=== PATIENT | male | born 1980 | race Caucasian/White ===

== ENCOUNTER 2018-06-09 12:29 | Emergency (ER) | payer OTHER ==
[2018-06-09 12:35] VITALS: BP 134/71; PULSE 59; TEMP 98; BMI 27.6
--- NOTE | 2018-06-09 13:10 | PDOC ---
History of Present Illness - General Chief Complaint: Shoulder Dislocation Stated Complaint: ARM INJURY Time Seen by Provider: 06/09/18 13:06 History Source: Patient - History of Present Illness Occurred: reports: just prior to arrival Upper Extremity Pain Location: right: shoulder Method of Injury: reports: other Past History - Past Medical History Allergies/Adverse Reactions: Allergies Allergy/AdvReac Type Severity Reaction Status Date / Time No Known Allergies Allergy Verified 06/09/18 12:34 Home Medications: Ambulatory Orders No Home Medications 0 dose .ROUTE UTDICT 06/04/14 COPD: No - Suicide/Smoking/Psychosocial Hx Smoking History: Never smoked Have you smoked in the past 12 months: No Information on smoking cessation initiated: No Hx Alcohol Use: No Drug/Substance Use Hx: No Substance Use Type: None Review of Systems - Review of Systems Musculoskeletal: Yes: Joint Pain, Joint Swelling *Physical Exam - Vital Signs Last Vital Signs Temp Pulse Resp BP Pulse Ox 98.0 F 59 L 17 134/71 100 06/09/18 12:32 06/09/18 12:32 06/09/18 12:32 06/09/18 12:32 06/09/18 12:32 - Physical Exam General Appearance: Yes: Appropriately Dressed. No: Apparent Distress HEENT: positive: Normal Voice Neck: positive: Supple Respiratory/Chest: negative: Respiratory Distress Extremity: positive: Normal Inspection, Normal Range of Motion, Other (NVI). negative: Tender, Swelling Integumentary: positive: Dry, Warm Neurologic: positive: Fully Oriented, Alert, Normal Mood/Affect Medical Decision Making - Medical Decision Making 06/09/18 13:25 37-year-old male, history of recurrent right shoulder dislocation. States shoulder dislocated again this afternoon while playing baseball but has since been able to put back in place since in ED. X-ray taken and shows no abnormalities. Patient's post reduction exam unremarkable. Given sling and orthopedic follow-up *DC/Admit/Observation/Transfer Diagnosis at time of Disposition: Recurrent shoulder dislocation - Discharge Dispostion Disposition: HOME Condition at time of disposition: Good - Referrals Referrals: Michael Jacques MD [Staff Physician] - - Patient Instructions Printed Discharge Instructions: DI for Shoulder Dislocation Additional Instructions: Your xray shows that your shoulder is back in place Keep sling in place for the next 1-[address] Jacques of orthopedics for follow up in 1 week to discuss further management Print Language: ALBANIAN - Post Discharge Activity
== END 2018-06-09 13:27 | disposition home or self-care (01) ==
LOC: JERFT 12:29
DX: M24.411 Recurrent dislocation, right shoulder (principal); X50.9XXA Other and unspecified overexertion or strenuous movements or postures, initial encounter; Y93.64 Activity, baseball; Y92.320 Baseball field as the place of occurrence of the external cause; Y99.8 Other external cause status
CPT/HCPCS: 73030-TC-RT-FY; 99281-25

== ENCOUNTER 2019-09-17 10:30 | Emergency (ER) | payer OTHER ==
[2019-09-17 10:40] VITALS: BP 105/72; PULSE 73; TEMP 98; BMI 27.6
[2019-09-17 11:37] LABS: PH,URINE 6.5 (5.0-8.0); URINE APPEARANCE CLEAR; URINE BILIRUBIN NEGATIVE (NEGATIVE); URINE COLOR YELLOW; URINE GLUCOSE (UA) NEGATIVE (NEGATIVE); URINE KETONE NEGATIVE (NEGATIVE); URINE LEUK ESTERASE NEGATIVE (NEGATIVE); URINE NITRITE NEGATIVE (NEGATIVE); URINE PROTEIN NEGATIVE (NEGATIVE); URINE UROBILINOGEN 0.2 mg/dL (0.2-1.0)
[2019-09-17 11:41] LABS: BASO % 0.6 % (0-2.0); HEMATOCRIT 47.6 % (35.4-49); HEMOGLOBIN 15.7 GM/dL (11.7-16.9); MCH 29.4 pg (25.7-33.7); MCHC 33.1 g/dl (32.0-35.9); MEAN CELL VOLUME 88.9 fl (80-96); MEAN PLT VOLUME 7.5 fl (7.5-11.1); MONO % 5.1 % (3.8-10.2); NEUT % 64.3 % (42.8-82.8); PLATELET COUNT 205 K/MM3 (134-434); RBC 5.36 M/mm3 (4.00-5.60); RDW 13.3 % (11.9-15.9); WHITE BLOOD COUNT 6.3 K/mm3 (4.0-10.0)
--- NOTE | 2019-09-17 11:45 | PDOC ---
History of Present Illness - General History Source: Patient Exam Limitations: Clinical Condition - History of Present Illness Initial Comments: 09/17/19 11:40 Patient with no significant past medical history presented with complaint of left flank pain since this morning with mild nausea. Denies vomiting, fever, chills. Denies diarrhea constipation. Patient report has similar episode 3 years ago and was found to have a kidney stone. Patient reported urinary frequency but denies dysuria or burning with urination. Patient reports pain is improved now. Denies any other symptoms Is this a multiple visit Asthma Patient?: No <Akira Esparza - Last Filed: 09/17/19 14:01> <Steve Simeon - Last Filed: 09/17/19 17:47> - General Chief Complaint: Pain, Acute Stated Complaint: ABD. PAIN/ KIDNEY PAIN Time Seen by Provider: 09/17/19 11:23 Past History - Past Medical History COPD: No - Psycho Social/Smoking Cessation Hx Smoking History: Never smoked Have you smoked in the past 12 months: No Hx Alcohol Use: No Drug/Substance Use Hx: No Substance Use Type: None <Akira Esparza - Last Filed: 09/17/19 14:01> <Steve Simeon - Last Filed: 09/17/19 17:47> - Past Medical History Allergies/Adverse Reactions: Allergies Allergy/AdvReac Type Severity Reaction Status Date / Time No Known Allergies Allergy Verified 09/17/19 10:35 Home Medications: Ambulatory Orders No Home Medications 0 dose .ROUTE UTDICT 06/04/14 Ketorolac Tromethamine [Toradol] 10 mg PO Q6H PRN #28 tablet 09/17/19 Tamsulosin HCl [Flomax -] 0.4 mg PO DAILY #7 cap.er.24h 09/17/19 Review of Systems - Review of Systems Able to Perform ROS?: Yes Is the patient limited Turkish proficient: No Constitutional: No: Chills, Fever, Malaise HEENTM: No: Symptoms Reported Respiratory: No: Symptoms reported, See HPI, Cough, Orthopnea, Shortness of Breath, SOB with Exertion, SOB at Rest, Stridor, Wheezing, Productive cough, Hemoptysis, Other Cardiac (ROS): No: Symptoms Reported, See HPI, Chest Pain, Edema, Irregular Heart Rate, Lightheadedness, Palpitations, Syncope, Chest Tightness, Other ABD/GI: Yes: Nausea. No: Symptoms Reported, Abd. Pain w/ defecation, Blood Streaked Bowels, Constipated, Diarrhea, Difficulty Swallowing, Poor Fluid Intake , Rectal Bleeding, Vomiting, Abdominal cramping : Yes: See HPI, Frequency, Flank Pain (left flank). No: Burning, Dysuria, Discharge, Urgency, Testicular Mass, Testicular Swelling, Testicular Pain Musculoskeletal: No: Symptoms Reported Neurological: No: Symptoms reported, Dizziness All Other Systems: Reviewed and Negative <Akira Esparza - Last Filed: 09/17/19 14:01> *Physical Exam - Vital Signs Last Vital Signs Temp Pulse Resp BP Pulse Ox 98 F 73 18 105/72 98 09/17/19 10:35 09/17/19 10:35 09/17/19 10:35 09/17/19 10:35 09/17/19 10:35 - Physical Exam Comments: 09/17/19 11:44 GENERAL: Well developed, well nourished. Awake and alert. No acute distress. NECK: Supple. Full ROM. CARDIOVASCULAR: Regular rate and rhythm. No murmurs, rubs, or gallops. Distal pulses are 2+ and symmetric. PULMONARY: No evidence of respiratory distress. Lungs clear to auscultation bilaterally. No wheezing, rales or rhonchi. ABDOMINAL: Soft. Mild left flank tenderness. Non-distended. No rebound or guarding. No organomegaly. Normoactive bowel sounds. MUSCULOSKELETAL Normal range of motion at all joints. SKIN: Warm and dry. Normal capillary refill. NEUROLOGICAL: Alert, awake, appropriate. Gait is normal without ataxia. PSYCHIATRIC: Cooperative. Good eye contact. Appropriate mood General Appearance: Yes: Nourished, Appropriately Dressed. No: Apparent Distress <Akira Esparza - Last Filed: 09/17/19 14:01> - Vital Signs Last Vital Signs Temp Pulse Resp BP Pulse Ox 98 F 73 18 105/72 98 09/17/19 10:35 09/17/19 10:35 09/17/19 10:35 09/17/19 10:35 09/17/19 10:35 <Steve Simeon - Last Filed: 09/17/19 17:47> ED Treatment Course - LABORATORY CBC & Chemistry Diagram: 09/17/19 11:30 09/17/19 11:30 - ADDITIONAL ORDERS Additional order review: Laboratory Results 09/17/19 11:11 Urine Color Yellow Urine Appearance Clear Urine pH 6.5 Ur Specific [place] 1.020 Urine Protein Negative Urine Glucose (UA) Negative Urine Ketones Negative Urine Blood 1+ H Urine Nitrite Negative Urine Bilirubin Negative Urine Urobilinogen 0.2 Ur Leukocyte Esterase Negative - RADIOLOGY Radiology Studies Ordered: Category Date Time Status SPIRAL- RENAL-STONE CT [CT] Stat CT Scan 09/17/19 11:30 Ordered <Akira Esparza - Last Filed: 09/17/19 14:01> - LABORATORY CBC & Chemistry Diagram: 09/17/19 11:30 09/17/19 11:30 - ADDITIONAL ORDERS Additional order review: Laboratory Results 09/17/19 09/17/19 11:30 11:11 Sodium 139 Potassium 3.8 Chloride 108 H Carbon Dioxide 25 Anion Gap 7 L BUN 13.5 Creatinine 1.2 Est GFR (CKD-EPI)AfAm 89.62 Est GFR (CKD-EPI)NonAf 77.33 Random Glucose 159 H Calcium 8.7 Total Bilirubin 0.4 AST 15 ALT 28 Alkaline Phosphatase 98 Total Protein 7.1 Albumin 3.8 Urine Color Yellow Urine Appearance Clear Urine pH 6.5 Ur Specific [place] 1.020 Urine Protein Negative Urine Glucose (UA) Negative Urine Ketones Negative Urine Blood 1+ H Urine Nitrite Negative Urine Bilirubin Negative Urine Urobilinogen 0.2 Ur Leukocyte Esterase Negative Urine WBC (Auto) 0.6 Urine RBC (Auto) 4.2 Urine Casts (Auto) 2.96 U Epithel Cells (Auto) 1.8 Urine Bacteria (Auto) 2.2 09/17/19 11:30 RBC 5.36 MCV 88.9 MCHC 33.1 RDW 13.3 MPV 7.5 Neutrophils % 64.3 D Lymphocytes % 26.0 D Monocytes % 5.1 Eosinophils % 4.0 Basophils % 0.6 <Steve Simeon - Last Filed: 09/17/19 17:47> Medical Decision Making - Medical Decision Making 09/17/19 11:45 Patient with no significant past medical history presented with complaint of left flank pain since this morning with mild nausea. Denies vomiting, fever, chills. Denies diarrhea constipation. Patient report has similar episode 3 years ago and was found to have a kidney stone. Patient reported urinary frequency but denies dysuria or burning with urination. Patient reports pain is improved now. Denies any other symptoms Exam significant for mild tenderness to left flank without guarding or rebound. No CVA tenderness. Symptoms likely muscle strain versus renal colic 09/17/19 11:53 CBC, CMP lab ordered. Urine GC and chlamydia test, UA urine culture lab ordered. Spiral CT ordered to rule out kidney stone 09/17/19 13:59 CBC and chemistry lab unremarkable. UA with no acute findings. Spiral CT shows multiple nonobstructing bilateral kidney stones. Patient stable for discharge on Flomax once daily and Toradol p.o. for pain for kidney stone with urology follow-up <Akira Esparza - Last Filed: 09/17/19 14:01> - Medical Decision Making 09/17/19 17:43 I reviewed the case of the mid-level practitioner and was available for consultation while in the emergency department <Steve Simeon - Last Filed: 09/17/19 17:47> Discharge - Discharge Information Problems reviewed: Yes - Admission No <Akira Esparza - Last Filed: 09/17/19 14:01> <Steve Simeon - Last Filed: 09/17/19 17:47> - Discharge Information Clinical Impression/Diagnosis: Kidney stone, Bilateral nephrolithiasis Condition: Stable Disposition: HOME - Additional Discharge Information Prescriptions: Ketorolac Tromethamine [Toradol] 10 mg PO Q6H PRN #28 tablet PRN Reason: pain Tamsulosin HCl [Flomax -] 0.4 mg PO DAILY #7 cap.er.24h - Follow up/Referral Referrals: Bonifacio Batista MD [Staff Physician] - - Patient Discharge Instructions Patient Printed Discharge Instructions: Kidney Stones -- Adult Additional Instructions: Your CAT scan shows small kidney stones. Take prescribed medication as prescribed for kidney stone. Follow-up referred to urologist Print Language: KITTITIAN
[2019-09-17 12:08] LABS: ALBUMIN 3.8 g/dl (3.4-5.0); BILIRUBIN,TOTAL 0.4 mg/dL (0.2-1); BLOOD UREA NITROGEN 13.5 mg/dL (7-18); CALCIUM 8.7 mg/dL (8.5-10.1); CREATININE 1.2 mg/dL (0.55-1.3); POTASSIUM 3.8 mmol/L (3.5-5.1); TOT PROT 7.1 g/dl (6.4-8.2)
[2019-09-17 13:43] LABS: EPI CELLS 1.8 /HPF (0-5/HPF); HYALINE CASTS 2.96 /lpf (0-8); URINE RBC 4.2 /hpf (0-4); URINE WBC 0.6 /hpf (0-5)
[2019-09-17 13:44] LABS: URINE BACTERIA 2.2 /hpf (NEGATIVE)
== END 2019-09-17 14:40 | disposition home or self-care (01) ==
LOC: JER 10:30
DX: N20.0 Calculus of kidney (principal); Z87.442 Personal history of urinary calculi
CPT/HCPCS: 36415; 74176-TC; 80053; 81003; 85025; 87086; 87491; 87591; 99282-25

== ENCOUNTER 2020-01-23 09:42 | Day surgery (SDC) | payer OTHER ==
[2020-01-14 13:49] VITALS: BMI 27.6
--- NOTE | 2020-01-23 07:45 | OP ---
Operative Note - Note: Operative Date: 01/23/20 Pre-Operative Diagnosis: Right shoulder instability s/p shoulder dislocation Operation: Right shoulder arthroscopy with bankart repair and remplissage procedure Post-Operative Diagnosis: Same as Pre-op Surgeon: Denis Patiño Event Management Consultant: Lesvia Tomlinson Anesthesia: General Operative Report Dictated: Yes
[2020-01-23] MEDS ORDERED: MIDAZOLAM HCL 2 MG/2 ML SINGLE DOSE VIAL ONE ×3 (10:32→11:04)
[2020-01-23] MEDS ORDERED: ROPIVACAINE HCL 0.5% 30ML VIAL ONE ×2 (10:33→10:51)
[2020-01-23] MEDS ORDERED: PROPOFOL 20 ML ONE ×2 (11:34→14:17)
[2020-01-23] MEDS ORDERED: ROCURONIUM BROMIDE 50 MG/5 ML SYRINGE ONE (11:34)
[2020-01-23] MEDS ORDERED: oxyCODONE HCL 5 MG TABLET PO PRN (12:29)
[2020-01-23] MEDS ORDERED: PROMETHAZINE HCL 25 MG/1 ML VIAL IVPUSH PRN (12:29)
[2020-01-23] MEDS ORDERED: ONDANSETRON 4 MG/2 ML VIAL IVPUSH PRN (12:29)
[2020-01-23] MEDS ORDERED: LACTATED RINGERS SOLUTION 1,000 ML IV SCH (12:30)
[2020-01-23] MEDS ORDERED: DESFLURANE GAS 240 ML BOTTLE IH ONE (13:59)
[2020-01-23 15:44] VITALS: TEMP 97.7
--- NOTE | 2020-01-23 16:24 | OP ---
DATE OF OPERATION: 01/23/2020 PREOPERATIVE DIAGNOSIS: Right shoulder recurrent instability. POSTOPERATIVE DIAGNOSIS: Right shoulder recurrent instability. PROCEDURE: Right shoulder arthroscopy with capsule labral repair, remplissage procedure. IMPLANTS: [employer] Regenesorb Microraptor x3, [employer] Q-FIX x2. COMPLICATIONS: None. INDICATIONS: This is a pleasant gentleman who had suffered multiple dislocations to the shoulder. These occurred over a period of many years. We discussed the option of nonoperative care which was unlikely to provide long-term stability. We discussed the option of operative care including both soft tissue and bony procedures. Given that he had minimal bone loss on recent imaging MRI, it was determined that a soft tissue repair would be a viable option. We discussed there is a slightly high rate of re-tear with soft tissue repair, but it is a more anatomic repair and provide a much more normal-feeling shoulder along with less chance of arthritis in the shoulder in the future. We discussed the procedure in in detail. I reviewed surgical risks including bleeding, infection, neurovascular injury, need for further surgery, postoperative pain and stiffness, persistent instability, permanent loss of motion or strength. We discussed that recurrent instability occurs in approximately 10% to 15% of patients and sometimes needs to be addressed with an open procedure or a bony augmentation procedure. We reviewed medical risks such as heart attack, stroke, DVT, PE, and . I addressed the use of perioperative antibiotic and DVT prophylaxis. I addressed all the patient's questions and concerns. He voiced understanding and elected to proceed. DESCRIPTION OF PROCEDURE: Patient was brought to the operating room where general anesthetic was administered. He had previously been given a block in the preoperative holding area. Patient was placed into the lateral decubitus position, careful to pad all the bony prominences and maintain the neck in neutral positioning. An axillary roll was placed. The limb was placed in gentle traction and abduction. The patient was then prepped and draped in the usual sterile fashion. A preoperative dose of antibiotics was given, and the usual timeout procedure was performed. The patient was examined prior to placement of the traction, demonstrating anterior load and shift and no jonathon posterior instability. There was negative sulcus. At this point, the bony landmarks were marked out. The portal sites were marked out. A standard viewing portal was established using 11 blade posteriorly. The arthroscope was passed into the glenohumeral joint. Examination of the glenoid surface demonstrated only some mild articular wear. Examining the labrum demonstrated some partial-thickness tearing along the 6 o'clock position and extending up until the 5:30 position. There was full-thickness labral tearing extending from the 6:[address] up to the 1:30 position. An anterior superior and an anterior inferior portal were now established. No labrum was able to be visualized from the posterior viewing portal. The arthroscope was then passed into the anterior portal to gain better visualization. There appeared to be very little tissue remaining on the anterior aspect of the glenoid. An elevator was used to raise up the remaining tissue and form a sleeve of tissue comprising what was felt to be the remnant of the labrum. While elevating, a small bony fragment was identified and maintained within this sleeve of tissue as well. The elevator was always kept in close contact with the bone, especially getting down towards the 6 o'clock position. After obtaining adequate mobility of the tissue, a traction suture was placed in order to ensure that the repair would mobilize to the proper location. After placing the traction suture and being satisfied with the soft tissue release, attention was turned posteriorly. Here, a large Hill-Sachs deformity was encountered. Prior to repairing this, it should be noted the rotator cuff was inspected, demonstrating no tears in the subscapularis, supraspinatus, and infraspinatus. The biceps was inspected, demonstrating no significant pathology as well. Turning back to the Hill-Sachs, an accessory posterolateral portal was established under spinal needle localization. The bed of the Hill-Sachs was debrided utilizing mechanical shaver as well as a rasp. After adequately preparing the bed, 2 Q-FIX anchors were passed into the subacromial space and then through the cuff in 2 separate areas, drilling and then inserting the Q-FIX into the bone, one more superior, one more inferior and just lateral to the articular margin. A [employer] suture passer was then used to pass two of each anchor sutures through a separate hole to spread out the remplissage repair. The sutures were then clamped for later tying. Attention was turned back anterior. The traction sutures were used to place a more inferior suture through the tissue just in front of the 6 o'clock position. The sutures were loaded onto a knotless suture anchor. The anchor was then drilled onto the border of the face of the glenoid and then inserted, securing the inferior-most portion of the labrum. This process was then repeated next with the previously passed traction suture and then with 1 additional suture placed more proximally. After securing these 3 sutures, a drive-through test was performed and was no longer possible whereas it had been possible prior to the suture repair. The attention was turned now back to the Hill-Sachs defect. One pair from each anchor was tied together to create a omkar effect. The pulleys were then toggled down to secure the rotator cuff into the Hill-Sachs defect. This was visualized arthroscopically and was satisfactory. The other knots were then tied to secure down the omkar effect. At this point, the excess fluid was withdrawn from the shoulder. The portals were sutured using 3-0 nylon. Sterile dressings were placed. The patient was extubated and transferred to recovery room in stable condition. Mirna [id number]
[2020-01-23 17:45] VITALS: BP 113/72; PULSE 81
== END 2020-01-23 17:50 | disposition home or self-care (01) ==
LOC: FASU 09:42
PROVIDERS: ATTEND Orthopaedic Surgery Sports Medicine
PROC: 0RQJ4ZZ Repair Right Shoulder Joint, Percutaneous Endoscopic Approach (ICD-10-PCS; 2020-01-23)
PROC: 0RQJ4ZZ Repair Right Shoulder Joint, Percutaneous Endoscopic Approach (ICD-10-PCS; principal; 2020-01-23 12:20)
DX: M25.311 Other instability, right shoulder (principal)
CPT/HCPCS: 94760

== ENCOUNTER 2023-01-12 23:11 | Emergency (ER) | payer OTHER ==
[2023-01-12 23:18] VITALS: TEMP 98.1; BMI 25.4
[2023-01-13] MEDS ORDERED: FAMOTIDINE 20 MG/50 ML IVPB 20 MG/50 ML MG IVPB ONE ×2 (00:14→00:33)
[2023-01-13] MEDS ORDERED: ONDANSETRON 4 MG/2 ML VIAL IVPUSH ONE (00:14)
[2023-01-13] MEDS ORDERED: LACTATED RINGERS SOLUTION 1000 ML INFUS.BAG IV ONE (00:14)
[2023-01-13] MEDS ORDERED: ALBUTEROL SO4 2.5/IPRATROPIUM 0.5 INH SOL 3 ML VIAL.NEB. NEB ONE ×2 (00:14→00:36)
[2023-01-13] MEDS ORDERED: LIDOCAINE 5% TOPICAL PATCH TP ONE (00:14)
[2023-01-13] MEDS ORDERED: ACETAMINOPHEN 1000 MG/100 ML BAG IVPB ONE (00:14)
[2023-01-13] MEDS ORDERED: diphenhydrAMINE HCL 25 MG CAPSULE (FP) PO ONE (00:17)
[2023-01-13] MEDS ORDERED: ACETAMINOPHEN INJECTION 100 ML IVPB ONE (00:19)
[2023-01-13 00:25] LABS: BASO % 0.5 % (0-2.0); HEMATOCRIT 46.2 % (35.4-49); HEMOGLOBIN 15.8 GM/dL (11.7-16.9); LYMPH % 27.2 % (8-40); MCH 29.7 pg (25.7-33.7); MCHC 34.3 g/dl (32.0-35.9); MEAN CELL VOLUME 86.6 fl (80-96); MEAN PLT VOLUME 6.8 fl (7.5-11.1); MONO % 5.6 % (3.8-10.2); NEUT % 60.7 % (42.8-82.8); PLATELET COUNT 234 10^3/uL (134-434); RBC 5.33 M/mm3 (4.00-5.60); RDW 14.3 % (11.9-15.9)
[2023-01-13 00:26] LABS: URINE APPEARANCE CLEAR; URINE BILIRUBIN NEGATIVE (NEGATIVE); URINE COLOR YELLOW; URINE GLUCOSE (UA) NEGATIVE (NEGATIVE); URINE KETONE NEGATIVE (NEGATIVE); URINE LEUK ESTERASE NEGATIVE (NEGATIVE); URINE NITRITE NEGATIVE (NEGATIVE); URINE PROTEIN NEGATIVE (NEGATIVE)
[2023-01-13] MEDS ORDERED: LIDOCAINE 5% TOPICAL PATCH ONE (00:33)
[2023-01-13] MEDS ORDERED: ONDANSETRON 4 MG/2 ML VIAL ONE (00:33)
[2023-01-13] MEDS ORDERED: predniSONE 20 MG TABLET (UD) PO ONE (00:39)
[2023-01-13] MEDS ORDERED: predniSONE 20 MG TABLET (UD) ONE (00:44)
[2023-01-13 00:47] LABS: CALCIUM 8.8 mg/dL (8.5-10.1)
[2023-01-13 00:48] LABS: ALBUMIN 3.7 g/dl (3.4-5.0); BLOOD UREA NITROGEN 17.9 mg/dL (7-18)
[2023-01-13 00:50] LABS: CREATININE 1.2 mg/dL (0.55-1.3)
[2023-01-13 00:52] LABS: BILIRUBIN,TOTAL 0.4 mg/dL (0.2-1); TOT PROT 7.3 g/dl (6.4-8.2)
[2023-01-13 01:56] VITALS: BP 119/77; PULSE 89; RESP 18
[2023-01-13] MEDS ORDERED: LIDOCAINE PATCH REMOVAL MC ONE (12:00)
== END 2023-01-13 02:19 | disposition home or self-care (01) ==
LOC: JER 23:11
PROC: 3E033GC Introduction of Other Therapeutic Substance into Peripheral Vein, Percutaneous Approach (ICD-10-PCS; principal; 2023-01-12)
PROC: 3E0F7GC Introduction of Other Therapeutic Substance into Respiratory Tract, Via Natural or Artificial Opening (ICD-10-PCS; 2023-01-12)
DX: M54.50 Low back pain, unspecified (principal); T50.995A Adverse effect of other drugs, medicaments and biological substances, initial encounter
CPT/HCPCS: 36415; 80053; 81003; 83690; 85025; 99284-25

== ENCOUNTER 2023-02-11 12:31 | Emergency (ER) | payer OTHER ==
[2023-02-11 12:46] VITALS: RESP 20; TEMP 98.3; BMI 25.5
[2023-02-11] MEDS ORDERED: METOCLOPRAMIDE HCL INJECTION 10 MG/2 ML VIAL IVPUSH ONE (13:30)
[2023-02-11] MEDS ORDERED: SODIUM CHLORIDE 0.9% 500 ML INFUS.BAG IV ONE (13:30)
[2023-02-11] MEDS ORDERED: ACETAMINOPHEN 1000 MG/100 ML BAG IVPB ONE (13:32)
[2023-02-11] MEDS ORDERED: ACETAMINOPHEN INJECTION 100 ML IVPB ONE (13:41)
[2023-02-11] MEDS ORDERED: METOCLOPRAMIDE HCL INJECTION 10 MG/2 ML VIAL ONE (13:41)
[2023-02-11 14:05] LABS: BASO % 1.4 % (0-2.0); EOS % 17.2 % (0-4.5); HEMATOCRIT 46.5 % (35.4-49); HEMOGLOBIN 16.2 GM/dL (11.7-16.9); LYMPH % 39.4 % (8-40); MCH 29.8 pg (25.7-33.7); MCHC 34.9 g/dl (32.0-35.9); MEAN CELL VOLUME 85.5 fl (80-96); MEAN PLT VOLUME 7.2 fl (7.5-11.1); MONO % 5.7 % (3.8-10.2); NEUT % 36.3 % (42.8-82.8); PLATELET COUNT 237 10^3/uL (134-434); RBC 5.44 M/mm3 (4.00-5.60); RDW 14.2 % (11.9-15.9); WHITE BLOOD COUNT 6.3 K/mm3 (4.0-10.0)
[2023-02-11 14:34] LABS: ALBUMIN 3.8 g/dl (3.4-5.0); CALCIUM 8.7 mg/dL (8.5-10.1)
[2023-02-11 14:35] LABS: BLOOD UREA NITROGEN 17.8 mg/dL (7-18)
[2023-02-11 14:36] LABS: CREATININE 1.1 mg/dL (0.55-1.3)
[2023-02-11 14:39] LABS: BILIRUBIN,TOTAL 0.2 mg/dL (0.2-1); TOT PROT 7.6 g/dl (6.4-8.2)
[2023-02-11 16:06] VITALS: BP 105/65; PULSE 80
== END 2023-02-11 16:33 | disposition home or self-care (01) ==
LOC: JER 12:31
PROC: 3E033NZ Introduction of Analgesics, Hypnotics, Sedatives into Peripheral Vein, Percutaneous Approach (ICD-10-PCS; principal; 2023-02-11)
PROC: 3E033GC Introduction of Other Therapeutic Substance into Peripheral Vein, Percutaneous Approach (ICD-10-PCS; 2023-02-11)
PROC: 3E033GC Introduction of Other Therapeutic Substance into Peripheral Vein, Percutaneous Approach (ICD-10-PCS; 2023-02-11)
DX: J32.9 Chronic sinusitis, unspecified (principal); R51.9 Headache, unspecified
CPT/HCPCS: 36415; 70450-TC; 80053; 85025; 99284-25

== ENCOUNTER 2023-08-20 01:49 | Emergency (ER) | payer OTHER ==
[2023-08-20 01:58] VITALS: BP 110/75; PULSE 87; RESP 20; TEMP 98.5; BMI 23.4
[2023-08-20] MEDS ORDERED: ALBUTEROL SO4 2.5/IPRATROPIUM 0.5 INH SOL 3 ML VIAL.NEB. NEB ONE ×2 (02:06→02:09)
[2023-08-20] MEDS ORDERED: DEXAMETHASONE SOD PHOSPHATE 10 MG/1 ML VIAL IM ONE (02:06)
[2023-08-20] MEDS ORDERED: DEXAMETHASONE SOD PHOSPHATE 10 MG/1 ML VIAL ONE (02:09)
== END 2023-08-20 06:24 | disposition home or self-care (01) ==
LOC: JER 01:49
PROC: 3E023GC Introduction of Other Therapeutic Substance into Muscle, Percutaneous Approach (ICD-10-PCS; principal; 2023-08-20)
PROC: 3E0F7GC Introduction of Other Therapeutic Substance into Respiratory Tract, Via Natural or Artificial Opening (ICD-10-PCS; 2023-08-20)
DX: J45.901 Unspecified asthma with (acute) exacerbation (principal); R06.02 Shortness of breath; R91.8 Other nonspecific abnormal finding of lung field; R05.9 Cough, unspecified; J02.9 Acute pharyngitis, unspecified; Z20.822 Contact with and (suspected) exposure to COVID-19
CPT/HCPCS: 0241U-QW; 71046-TC-FY; 99284-25; J1100